=== PATIENT | male | born 1940 | race Caucasian/White ===

== ENCOUNTER 2018-03-08 10:12 | Emergency (ER) | payer OTHER ==
[2018-03-08 10:19] VITALS: BP 143/89; PULSE 76; TEMP 98.7; BMI 34.4
[2018-03-08] MEDS ORDERED: MECLIZINE HCL 25 MG TABLET (FP) PO ONE (10:44)
[2018-03-08] MEDS ORDERED: SODIUM CHLORIDE 0.9% 1000 ML INFUS.BAG IV ONE (10:44)
[2018-03-08] MEDS ORDERED: MECLIZINE HCL 25 MG TABLET (FP) ONE (11:00)
[2018-03-08 11:18] LABS: BASO % 1.5 % (0-2.0); EOS % 3.2 % (0-4.5); HEMATOCRIT 45.6 % (35.4-49); HEMOGLOBIN 14.7 GM/dl (11.7-16.9); MCH 31.6 pg (25.7-33.7); MCHC 32.3 g/dl (32.0-35.9); MEAN CELL VOLUME 97.9 fl (80-96); MEAN PLT VOLUME 9.3 fl (7.5-11.1); MONO % 8.3 % (3.8-10.2); PLATELET COUNT 244 K/MM3 (134-434); RBC 4.66 M/mm3 (4.00-5.60); RDW 12.9 % (11.9-15.9); WHITE BLOOD COUNT 6.6 K/mm3 (4.0-10.8)
--- NOTE | 2018-03-08 11:26 | PDOC ---
History of Present Illness - General Chief Complaint: Lightheaded Stated Complaint: ROOM SPINS Time Seen by Provider: 03/08/18 10:21 History Source: Patient Exam Limitations: No Limitations - History of Present Illness Initial Comments: 03/08/18 11:21 78 yo male with h/o bradycardia pacer, htn hld here wtih c/o vertigo started few days ago. states has feelings of lightheaded going from sitting to standing , inaddition to spinning sensation when lying in bed, and turning corners. denies n/v no f/c no tinnitus. no balance or gait issues. no h/o cva. no focal weakness or changes to speech. no head trauma. called dr. mccormick, who sent to ed for evaluation. no cp no sob. Past History - Past Medical History Allergies/Adverse Reactions: Allergies Allergy/AdvReac Type Severity Reaction Status Date / Time No Known Drug Allergies Allergy Verified 03/08/18 10:13 Home Medications: Ambulatory Orders Aspirin 81 mg PO DAILY #0 10/20/11 Fish Oil 500 mg Softgel PO DAILY #0 10/20/11 Lipitor 10 mg PO HS #0 10/20/11 Vitamin B Complex 1 tab PO DAILY #0 10/20/11 Vitamin D3 2,000 mg PO DAILY #0 10/20/11 Meclizine HCl 25 mg PO QID #20 tablet MDD 4 03/08/18 Anemia: No Asthma: No Cancer: No Cardiac Disorders: Yes (AV BLOCK) CVA: No COPD: No CHF: No DVT: No Dementia: No Diabetes: No GI Disorders: No Disorders: No HTN: No Hypercholesterolemia: Yes Liver Disease: No Seizures: No Thyroid Disease: No - Surgical History Abdominal Surgery: Yes (UMBILICAL HERNIA REPAIR 2010) Appendectomy: No Cardiac Surgery: Yes (PACEMAKER) Cholecystectomy: No Lung Surgery: No Neurologic Surgery: No Orthopedic Surgery: Yes (SX RIGHT RING FINGER) - Suicide/Smoking/Psychosocial Hx Smoking History: Former smoker Have you smoked in the past 12 months: No If you are a former smoker, when did you quit?: 1977 Information on smoking cessation initiated: No Hx Alcohol Use: No Drug/Substance Use Hx: No Substance Use Type: None Hx Substance Use Treatment: No Review of Systems - Review of Systems Constitutional: No: Diaphoresis, Fever, Other Respiratory: No: Orthopnea, Shortness of Breath Cardiac (ROS): No: Edema Musculoskeletal: No: Back Pain, Gout Neurological: Yes: Other (vertigo). No: Unsteady Gait, Ataxia All Other Systems: Reviewed and Negative *Physical Exam - Vital Signs Last Vital Signs Temp Pulse Resp BP Pulse Ox 98.7 F 76 18 143/89 100 03/08/18 10:13 03/08/18 10:13 03/08/18 10:13 03/08/18 10:13 03/08/18 10:13 - Physical Exam General Appearance: No: Appropriately Dressed HEENT: positive: Normal ENT Inspection Respiratory/Chest: positive: Lungs Clear, Normal Breath Sounds Cardiovascular: positive: Regular Rhythm, Regular Rate, S1, S2 Gastrointestinal/Abdominal: positive: Normal Bowel Sounds, Flat, Soft. negative : Tender Musculoskeletal: positive: Normal Inspection Extremity: positive: Normal Capillary Refill, Normal Inspection, Normal Range of Motion Integumentary: positive: Normal Color, Dry, Warm Neurologic: positive: Fully Oriented, Alert, Normal Mood/Affect, Normal Response , Motor Strength 5/5, Finger to Nose, Other (finger to nose normal, heel to rodas normal, alt hand movement nml, neg romberg. gait normal. pos leeann hallpike to right.). negative: Facial Droop, Sensory Deficit, Confused, Disoriented Heart Score/ECG Review #1 General ECG Interpretation: Normal Rate (66) Compared to previous ECG there are: Other (paces, left axis.) ED Treatment Course - LABORATORY CBC & Chemistry Diagram: 03/08/18 11:00 03/08/18 11:00 - RADIOLOGY Radiology Studies Ordered: Category Date Time Status HEAD CT WITHOUT CONTRAST [CT] Stat CT Scan 03/08/18 10:41 Taken - Medications Given in the ED: ED Medications Discontinued Medications Generic Name Dose Route Start Last Admin Trade Name Freq PRN Reason Stop Dose Admin Meclizine HCl 25 mg 03/08/18 10:44 03/08/18 11:06 Antivert - PO 03/08/18 10:45 25 mg ONCE ONE Administration Sodium Chloride 1,000 ml 03/08/18 10:44 03/08/18 11:06 Normal Saline - IV 03/08/18 10:45 1,000 ml ONCE ONE Administration Medical Decision Making - Medical Decision Making 03/08/18 11:25 78 yo male with h/o hld htn bradycardia with pacer here with vertigo. differential electrolyte abnormality, anemia, renal failure, cva, however likley peripheral with normal cerebellar exam. however due to risk factors will obtain ct head. pt unable to have mri due to pace maker. will treat with meclizine, fluids, d/w dr. mccormick re plan of care. 03/08/18 12:28 pt feeling much improved with meclizine. labs unremarkable. ct head unremarkable. d/w dr. Donato will see pt tomorrow. *DC/Admit/Observation/Transfer Diagnosis at time of Disposition: Positional vertigo - Discharge Dispostion Condition at time of disposition: Stable - Prescriptions Prescriptions: Meclizine HCl 25 mg PO QID #20 tablet MDD 4 - Referrals Referrals: Henry Donato MD [Primary Care Provider] - Kuldeep Anderson MD [Staff Physician] - - Patient Instructions Printed Discharge Instructions: Benign Paroxysmal Positional Vertigo Additional Instructions: you can take meclizine 25 mg every 6 hrs as needed for vertigo or dizziness. return for any difficulty walking , imbalance, persistant vomiting or any concerns. you should follow up [facility] [place] dr. De Leon, you can also follow up with a neurologist, see referral information for dr. Anderson. - Post Discharge Activity
[2018-03-08 12:23] LABS: ALBUMIN 3.9 g/dl (3.5-5.0); ALK PHOS 72 U/L (32-92); ANION GAP 5 MMOL/L (8-16); BILIRUBIN,TOTAL 1.5 mg/dl (0.2-1.0); BLOOD UREA NITROGEN 19 mg/dl (7-18); CALCIUM 9.2 mg/dl (8.4-10.2); CHLORIDE 102 mmol/L (98-107); CO2 30 mmol/L (22-28); CREATININE 0.9 mg/dl (0.6-1.3); GLUCOSE,RANDOM 115 mg/dl (74-106); POTASSIUM 4.1 mmol/L (3.5-5.1); SGOT/AST 28 U/L (10-42); SGPT/ALT 24 U/L (10-40); SODIUM 137 mmol/L (136-145); TOT PROT 6.7 g/dl (6.4-8.3)
== END 2018-03-08 12:40 | disposition home or self-care (01) ==
LOC: FER 10:12
PROC: 3E0337Z Introduction of Electrolytic and Water Balance Substance into Peripheral Vein, Percutaneous Approach (ICD-10-PCS; principal; 2018-03-08)
DX: H81.10 Benign paroxysmal vertigo, unspecified ear (principal); I10 Essential (primary) hypertension; R00.1 Bradycardia, unspecified; Z95.0 Presence of cardiac pacemaker; E78.00 Pure hypercholesterolemia, unspecified
CPT/HCPCS: 36415; 70450-TC; 80053; 85025; 99282-25; J7030

== ENCOUNTER 2023-11-08 04:30 | Day surgery (SDC) | payer OTHER ==
[2023-10-28 14:59] VITALS: BMI 36.2
[2023-11-08] MEDS ORDERED: BUPIVACAINE HCL/PF 0.25% (2.5MG/ML) 10 ML VIAL ONE (07:15)
[2023-11-08] MEDS ORDERED: LIDOCAINE 1%/EPI 1:100000 (20 ML MULTI DOSE VIAL) ONE (07:15)
[2023-11-08] MEDS ORDERED: LIDOCAINE HCL/PF 1% SDV 5ML VIAL ONE (07:16)
[2023-11-08] MEDS ORDERED: LIDOCAINE HCL 1%, 10 MG/ML (20ML VIAL) ONE (07:32)
[2023-11-08] MEDS ORDERED: FENTANYL CITRATE/PF 50 MCG/ML VIAL ONE ×2 (07:49→08:09)
[2023-11-08] MEDS: ceFAZolin SODIUM 1 GM VIAL IVPB ONE ×2 (08:01→08:05)
[2023-11-08] MEDS ORDERED: MIDAZOLAM HCL 2 MG/2 ML SINGLE DOSE VIAL ONE (08:02)
[2023-11-08] MEDS ORDERED: ceFAZolin SODIUM 1 GM VIAL ONE (08:03)
[2023-11-08] MEDS ORDERED: ONDANSETRON 4 MG/2 ML VIAL ONE (08:03)
[2023-11-08] MEDS: LIDOCAINE HCL 1%, 10 MG/ML (20ML VIAL) SQ ONE ×2 (08:16)
[2023-11-08] MEDS: BUPIVACAINE HCL/PF 0.25% (2.5MG/ML) 10 ML VIAL IJ ONE ×2 (08:16)
[2023-11-08] MEDS ORDERED: GENTAMICIN SO4 80 MG/2 ML VIAL ONE (08:25)
[2023-11-08] MEDS: GENTAMICIN SO4 80 MG/2 ML VIAL IVPB ONE (08:26)
[2023-11-08 11:15] VITALS: BP 115/64; PULSE 64; RESP 19; TEMP 97.5
== END 2023-11-08 11:22 | disposition home or self-care (01) ==
LOC: JASU-SURG 04:30
PROVIDERS: ATTEND Internal Medicine
PROC: 0JH606Z Insertion of Pacemaker, Dual Chamber into Chest Subcutaneous Tissue and Fascia, Open Approach (ICD-10-PCS; 2023-11-08)
PROC: 0JPT0PZ Removal of Cardiac Rhythm Related Device from Trunk Subcutaneous Tissue and Fascia, Open Approach (ICD-10-PCS; principal; 2023-11-08 07:30)
DX: Z45.010 Encounter for checking and testing of cardiac pacemaker pulse generator [battery] (principal)
CPT/HCPCS: 33228; C1785; 88300-TC; 93005; 93010; 94760